=== PATIENT | female | born 1995 | race Caucasian/White ===

== ENCOUNTER 2019-02-19 16:46 | Emergency (ER) | payer SELFPAY ==
[~2019-02-19] VITALS: Ht 172.7 cm; Wt 68.0 kg
--- OUTSIDE RECORDS SUMMARY | 2019-02-19 16:53 | XMS REPORT ---
Author Author LUBNA MCKINNEY Organization [facility] Address [address] [place] [address] Care Team Providers Care Research Management Associate Name Role Phone LUBNA MCKINNEY Unavailable PROBLEMS Unknown Problems ALLERGIES Substance Reaction Event Type Date Status Ibuprofen Unknown Drug Allergy Apr, Active ENCOUNTERS Encounter Location Date Diagnosis [facility] [id number] [place] [id number] Apr, Dental examination Z01.20 and Dental caries K02.9 [facility] [id number] [place] [id number] Apr, Breast pain N64.4 ; History of UTI Z87.440 and Tooth infection K04.7 [facility] [id number] [place] [id number] Apr, Dental examination Z01.20 IMMUNIZATIONS No Known Immunizations SOCIAL HISTORY Never Assessed REASON FOR VISIT breast pain , patient states she had a lump on breast but now is not tehre anym ore -- jeet sepulveda, bump on left little finger and thumb PLAN OF CARE Activity Details Follow Up as indicated by lab Reason:breast pain VITAL SIGNS Height 5'5" in 2018-04-15 Weight 149.8 lbs 2018-04-15 Temperature 98.0 degrees Fahrenheit 2018-04-15 Heart Rate 78 bpm 2018-04-15 Respiratory Rate 18 2018-04-15 BMI 24.93 kg/m2 2018-04-15 MEDICATIONS Medication Instructions Dosage Frequency Start Date End Date Duration Status Amoxicillin 875 MG Orally every 12 hrs 1 tablet 12h Apr, Apr, 07 days Active RESULTS No Results PROCEDURES Procedure Date Ordered Result Body Site COMPLETE CBC W/AUTO DIFF WBC April 15, 2018 COMPREHEN METABOLIC PANEL April 15, 2018 URINALYSIS, AUTO, W/O SCOPE April 15, 2018 ASSAY THYROID STIM HORMONE April 15, 2018 VENIPUNCT, ROUTINE* April 15, 2018 URINE TEST April 15, 2018 INSTRUCTIONS MEDICATIONS ADMINISTERED No Known Medications MEDICAL (GENERAL) HISTORY Type Description Date Surgical History gallbladder
--- OUTSIDE RECORDS SUMMARY | 2019-02-19 16:53 | XMS REPORT ---
Author Author JEAN CLAUDE COLON [facility] Address Unknown Care Team Providers Care Global Commodity Manager Name Role Phone JEAN CLAUDE COLON Unavailable PROBLEMS Unknown Problems ALLERGIES Substance Reaction Event Type Date Status Ibuprofen Unknown Drug Allergy Apr, Active ENCOUNTERS Encounter Location Date Diagnosis [facility] [address] [facility] [id number] [id number] Apr, Dental examination Z01.20 and Dental caries K02.9 [facility] [address] [facility] [id number] [address] Apr, Breast pain N64.4 ; History of UTI Z87.440 and Tooth infection K04.7 [facility] [address] [facility] [id number] [phone] Apr, Dental examination Z01.20 IMMUNIZATIONS No Known Immunizations SOCIAL HISTORY Never Assessed REASON FOR VISIT TE has been on antibiotic since 04/15/18 PLAN OF CARE Activity Details Follow Up prn Reason:erlin/hygiene VITAL SIGNS Height 5'5" in 2018-04-21 Blood pressure systolic 125 mmHg 2018-04-21 Blood pressure diastolic 86 mmHg 2018-04-21 MEDICATIONS Medication Instructions Dosage Frequency Start Date End Date Duration Status Amoxicillin 875 MG Orally every 12 hrs 1 tablet 12h Apr, Apr, 07 days Active RESULTS No Results PROCEDURES Procedure Date Ordered Result Body Site LTD ORAL EVALUATION - PROBLEM FOCUS April 21, 2018 INTRAORL-PERIAPICAL 1 FILM [id number] April 21, 2018 EXTRAC ERUPTED TOOTH/EXPOSED ROOT April 21, 2018 BITEWING - SINGLE FILM April 21, 2018 INSTRUCTIONS MEDICATIONS ADMINISTERED No Known Medications MEDICAL (GENERAL) HISTORY Type Description Date Surgical History gallbladder
[2019-02-19] MEDS ORDERED: HYDR-4226 PO (18:16)
[2019-02-19] MEDS ORDERED: PENI500T PO (18:16)
--- NOTE | 2019-02-19 18:16 | ED EENT ---
History of Present Illness General Chief Complaint: Dental Problems/Pain Stated Complaint: DENTAL PAIN Nursing Triage Note: Patient reports her dentist told her she has a bad molar with a root exposed. She states she does not have enough money to have the recommended surgery, and has been taking tylenol for pain, which has not helped. History of Present Illness Date Seen by Provider: February 19, 2019 Time Seen by Provider: 17:59 R upper posterior toothache X 1 day, has had similar for some time, was told by dentist she will need to see oral surgeon for extraction of molar but cannot afford it. No difficulty swallowing or breathing, no ROJAS or vis change, weakness, numbness, or tingling. No other symptoms. Allergies and Home Medications Allergies Coded Allergies: ibuprofen (Verified Allergy, Unknown, 02/19/19) Home Medications Hydrocodone/Acetaminophen 1 Each Tablet, 1 TAB PO Q4-6HR Prescribed by: ATILIO LIRIANO on 02/19/191815 Penicillin V Potassium 500 Mg Tablet, 500 MG PO QID Prescribed by: ATILIO LIRIANO on 02/19/191815 Patient Home Medication List Home Medication List Reviewed: Yes Review of Systems Review of Systems Constitutional: no symptoms reported Eyes: No Symptoms Reported Ears: No Symptoms Reported Nose: no symptoms reported Mouth: see HPI Throat: no symptoms reported Respiratory: no symptoms reported Cardiovascular: no symptoms reported Gastrointestinal: no symptoms reported Musculoskeletal: no symptoms reported Skin: no symptoms reported Neurological: No Symptoms Reported Hematologic/Lymphatic: No Symptoms Reported Immunological/Allergic: no symptoms reported Past [id number]-[id number] Hx Past Med/Social Hx: Reviewed Nursing Past Med/Soc Hx Patient Social History Alcohol Use: Occasionally Uses Recreational Drug Use: No Smoking Status: Current Everyday Smoker Type Used: Cigarettes 2nd Hand Smoke Exposure: Yes Recent Foreign Travel: No Contact w/Someone Who Travel: No Recent Infectious Disease Expo: No Recent Hopitalizations: No Physical Abuse: No Sexual Abuse: No Mistreated: No Fear: No Seasonal Allergies Seasonal Allergies: No Past Medical History Surgeries: Yes (teeth pulled, spinal surgery) Respiratory: No Cardiac: No Neurological: No Genitourinary: No Gastrointestinal: No Musculoskeletal: No Endocrine: No HEENT: No Cancer: No Psychosocial: No Integumentary: No Physical Exam Vital Signs Vital Signs - First Documented 02/19/19 16:58 Temp 96.3 Pulse 94 Resp 20 B/P (MAP) 130/60 (83) Pulse Ox 100 O2 Delivery Room Air Height, Weight, BMI Height: 5'8.00" Weight: 150lbs. oz. 68.836765yr; BMI Method:Stated General Appearance: no apparent distress Eyes: bilateral eye PERRL, bilateral eye EOMI Nose: normal inspection Mouth/Throat: pharynx normal; No mandibular swelling, No maxillary swelling, No tongue swollen, No tonsillar swelling, No trismus, No uvula swelling, No voice changes; other (no obvious inflammatory changes around right upper posterior molar) Neck: supple; No lymphadenopathy (R), No lymphadenopathy (L) Cardiovascular: normal peripheral pulses, regular rate, rhythm Respiratory: lungs clear Gastrointestinal: non tender Neurologic/Psychiatric: inspector ball points II-XII nml as tested, alert, oriented x 3; No abnormal gait Skin: warm/dry Progress/Results/Core Measures Results/Orders Vital Signs/I&O 02/19/19 16:58 Temp 96.3 Pulse 94 Resp 20 B/P (MAP) 130/60 (83) Pulse Ox 100 O2 Delivery Room Air Blood Pressure Mean: 83 Progress Progress Note : Progress Note Patient complains of a right upper posterior molar toothache, this is a chronic problem with no signs of acute inflammation to suggest abscess or airway obstruction or sepsis. I advised her to inquire about payment plans with the oral surgeon. She will return for any new or worsening symptoms. We will start penicillin, I will prescribe a short course of narcotic analgesics, I checked the [facility] website and there were no recent controlled substance prescriptions. Departure Impression Primary Impression: Toothache Disposition: 01 HOME, SELF-CARE ( ) Condition: Stable Departure-Patient Inst. Referrals: NO,LOCAL PHYSICIAN (PCP/Family) Primary Care Physician Patient Instructions: Dental Pain (DC) Scripts Hydrocodone/Acetaminophen ([place] 5-325 Tablet) 1 Each Tablet 1 TAB PO Q4-6HR for Pain MDD 10 TABS for 4 Days, #18 TAB Prov: ATILIO LIRIANO DO 02/19/19 Penicillin V Potassium (Penicillin V Potassium) 500 Mg Tablet 500 MG PO QID for 10 Days, #40 TAB Prov: ATILIO LIRIANO DO 02/19/19 ATILIO LIRIANO DO February 19, 2019 18:16
[2019-02-19 18:30] VITALS: BP 130/60
== END 2019-02-19 18:30 | disposition home or self-care (01) ==
LOC: ER FS 16:48
DX: K08.89 Other specified disorders of teeth and supporting structures (principal); F17.210 Nicotine dependence, cigarettes, uncomplicated; Z88.6 Allergy status to analgesic agent; Z88.0 Allergy status to penicillin
CPT/HCPCS: 99282